=== PATIENT | female | born 1960 | race Caucasian/White ===

== ENCOUNTER 2016-08-09 00:56 | Emergency (ER) | payer MEDICARE, OTHER ==
[~2016-08-09] VITALS: Ht 175.3 cm; Wt 60.0 kg
[2016-08-09] MEDS ORDERED: SODIUM CHLOR 0.9% 1000 ML INJ 1,000 ML IV ONE ×2 (01:45)
[2016-08-09 01:58] VITALS: BP 85/54; PULSE 98; RESP 16; TEMP 97.9; O2SAT 95
[2016-08-09 02:25] VITALS: O2SAT 99
[2016-08-09 02:27] LABS: BASOPHIL # 0.1 TH/MM3 (0-0.2); EOSINOPHIL # 0.8 TH/MM3 (0-0.4); LYMPH % 45.2 % (9.0-44.0); LYMPHOCYTE # 5.3 TH/MM3 (1.0-4.8); MEAN CELL VOLUME 98.8 FL (80.0-100.0); MEAN CORPUSCULAR HEMOGLOBIN 34.8 PG (27.0-34.0); MEAN CORPUSCULAR HGB CONC 35.2 % (32.0-36.0); MONO % 4.8 % (0.0-8.0); PLATELET COUNT 244 TH/MM3 (150-450); RED BLOOD COUNT 3.64 MIL/MM3 (4.00-5.30); RED CELL DISTRIBUTION WIDTH 13.1 % (11.6-17.2); WHITE BLOOD COUNT 11.8 TH/MM3 (4.0-11.0)
[2016-08-09 02:31] LABS: HEMO FLAGS AUTO DIFF
[2016-08-09 02:46] LABS: AMPHETAMINE, URINE NEG (NEG); BARBITURATES, URINE NEG (NEG); COCAINE, URINE NEG (NEG)
[2016-08-09 02:59] LABS: ALKALINE PHOSPHATASE 67 U/L (45-117); ALT (GPT) 55 U/L (10-53); TOTAL BILIRUBIN ADULT 0.2 MG/DL (0.2-1.0)
[2016-08-09 03:23] LABS: ANION GAP 6 MEQ/L (5-15); AST (GOT) 62 U/L (15-37); BLOOD UREA NITROGEN 13 MG/DL (7-18); CHLORIDE 107 MEQ/L (98-107); GLOMERULAR FILTRATION RATE 91 ML/MIN (>89); SODIUM (NA) 139 MEQ/L (136-145)
[2016-08-09 03:24] LABS: POTASSIUM 4.8 MEQ/L (3.5-5.1)
[2016-08-09 03:37] LABS: BASOPHILS 1 % (0-2); EOSINOPHILS 5 % (0-4); PLATELET ESTIMATE SMEAR NORMAL (NORMAL); PLATELET MORPHOLOGY NORMAL (NORMAL); POLYS (SEG NEUTROPHILS) 42 % (16-70); SCAN/DIFF FINAL DIFF MANUAL; WBC DIFF SAMPLE 100
[2016-08-09 04:09] VITALS: BP 101/71; PULSE 78; RESP 18; O2SAT 99
--- NOTE | 2016-08-09 05:21 | PD ---
HPI Chief Complaint: Alcohol/Drug Intoxication Time Seen by Provider: 05:16 Travel History International Travel<30 days: No Contact w/Intl Traveler<30days: No Traveled to known affect area: No History of Present Illness HPI 56-year-old white female presents to emergency department under a [place] act. The patient was found heavily intoxicated and unable to care for herself. The patient here is unable to give any meaningful history due to her alcohol intoxication. We have tried to contact her daughter with a number we have received is not working. There is no evidence of trauma. [facility] Past Medical History Narrative Medical Anxiety, depression, possible heart disease Medical History: Unable to Obtain Tetanus Vaccination: < 5 Years ?: Unknown Past Surgical History Surgical History: No Previous Surgery Social History Alcohol Use: Yes Tobacco Use: Yes Substance Use: No Allergies-Medications (Allergen,Severity, Reaction): Coded Allergies: UNOBTAINABLE (Unverified , 08/09/16) Review of Systems ROS Limitations: Intoxication Physical Exam Narrative GENERAL: Well-nourished, well-developed patient. Patient smells of EtOH appears heavily intoxicated. She is unsteady on her feet and smells of EtOH SKIN: Warm and dry. HEAD: Normocephalic and atraumatic. EYES: No scleral icterus. No injection or drainage. ENT: No nasal drainage noted. Mucous membranes pink. Airway patent. NECK: Supple, trachea midline. Moves head freely without obvious discomfort. CARDIOVASCULAR: Regular rate and rhythm without murmurs, gallops, or rubs. RESPIRATORY: Breath sounds equal bilaterally. No accessory muscle use. GASTROINTESTINAL: Abdomen soft, non-tender, nondistended. EXTREMITIES: No cyanosis or edema. BACK: Nontender without obvious deformity. No CVA tenderness. NEURO: Patient is alert and oriented. no sensorimotor deficits. Nonfocal. Slurred speech. PSYCH: No delusions. No auditory or visual hallucinations. Data Data Last Documented VS Vital Signs Date Time Temp Pulse Resp B/P Pulse Ox O2 Delivery O2 Flow Rate FiO2 08/09/16 02:25 99 Room Air 08/09/16 01:58 97.9 98 16 85/54 Orders Complete Blood Count With Diff (08/09/16 01:38) Comprehensive Metabolic Panel (08/09/16 01:38) Ed Urine Pregnancytest Poc (08/09/16 01:38) Oximetry (08/09/16 01:38) Iv Access Insert/Monitor (08/09/16 01:38) Ecg Monitoring (08/09/16 01:38) Drug Screen, Random Urine (08/09/16 01:38) Alcohol (Ethanol) (08/09/16 01:38) Sodium Chlor 0.9% 1000 Ml Inj (Ns 1000 M (08/09/16 01:45) Sodium Chlor 0.9% 1000 Ml Inj (Ns 1000 M (08/09/16 01:45) Labs Laboratory Tests Test 08/09/16 08/09/16 01:45 02:15 White Blood Count 11.8 TH/MM3 Red Blood Count 3.64 MIL/MM3 Hemoglobin 12.7 GM/DL Hematocrit 36.0 % Mean Corpuscular Volume 98.8 FL Mean Corpuscular Hemoglobin 34.8 PG Mean Corpuscular Hemoglobin 35.2 % Concent Red Cell Distribution Width 13.1 % Platelet Count 244 TH/MM3 Mean Platelet Volume 7.8 FL Neutrophils (%) (Auto) 42.0 % Lymphocytes (%) (Auto) 45.2 % Monocytes (%) (Auto) 4.8 % Eosinophils (%) (Auto) 7.0 % Basophils (%) (Auto) 1.0 % Neutrophils # (Auto) 5.0 TH/MM3 Lymphocytes # (Auto) 5.3 TH/MM3 Monocytes # (Auto) 0.6 TH/MM3 Eosinophils # (Auto) 0.8 TH/MM3 Basophils # (Auto) 0.1 TH/MM3 CBC Comment AUTO DIFF Differential Total Cells 100 Counted Neutrophils % (Manual) 42 % Lymphocytes % 44 % Monocytes % 8 % Eosinophils % 5 % Basophils % 1 % Neutrophils # (Manual) 5.0 TH/MM3 Differential Comment FINAL DIFF MANUAL Platelet Estimate NORMAL Platelet Morphology Comment NORMAL Red Cell Morphology Comment NORMAL Sodium Level 139 MEQ/L Potassium Level 4.8 MEQ/L Chloride Level 107 MEQ/L Carbon Dioxide Level 26.0 MEQ/L Anion Gap 6 MEQ/L Blood Urea Nitrogen 13 MG/DL Creatinine 0.67 MG/DL Estimat Glomerular Filtration 91 ML/MIN Rate Random Glucose 86 MG/DL Calcium Level 8.4 MG/DL Total Bilirubin 0.2 MG/DL Aspartate Amino Transf 62 U/L (AST/SGOT) Alanine Aminotransferase 55 U/L (ALT/SGPT) Alkaline Phosphatase 67 U/L Total Protein 7.8 GM/DL Albumin 3.4 GM/DL Ethyl Alcohol Level 276 MG/DL Urine Opiates Screen NEG Urine Barbiturates Screen NEG Urine Amphetamines Screen NEG Urine Benzodiazepines Screen NEG Urine Cocaine Screen NEG Urine Cannabinoids Screen NEG MDM Medical Decision Making Medical Screen Exam Complete: Yes Emergency Medical Condition: Yes Medical Record Reviewed: Yes Interpretation(s) Laboratory Tests Test 08/09/16 08/09/16 01:45 02:15 White Blood Count 11.8 TH/MM3 Red Blood Count 3.64 MIL/MM3 Hemoglobin 12.7 GM/DL Hematocrit 36.0 % Mean Corpuscular Volume 98.8 FL Mean Corpuscular Hemoglobin 34.8 PG Mean Corpuscular Hemoglobin 35.2 % Concent Red Cell Distribution Width 13.1 % Platelet Count 244 TH/MM3 Mean Platelet Volume 7.8 FL Neutrophils (%) (Auto) 42.0 % Lymphocytes (%) (Auto) 45.2 % Monocytes (%) (Auto) 4.8 % Eosinophils (%) (Auto) 7.0 % Basophils (%) (Auto) 1.0 % Neutrophils # (Auto) 5.0 TH/MM3 Lymphocytes # (Auto) 5.3 TH/MM3 Monocytes # (Auto) 0.6 TH/MM3 Eosinophils # (Auto) 0.8 TH/MM3 Basophils # (Auto) 0.1 TH/MM3 CBC Comment AUTO DIFF Differential Total Cells 100 Counted Neutrophils % (Manual) 42 % Lymphocytes % 44 % Monocytes % 8 % Eosinophils % 5 % Basophils % 1 % Neutrophils # (Manual) 5.0 TH/MM3 Differential Comment FINAL DIFF MANUAL Platelet Estimate NORMAL Platelet Morphology Comment NORMAL Red Cell Morphology Comment NORMAL Sodium Level 139 MEQ/L Potassium Level 4.8 MEQ/L Chloride Level 107 MEQ/L Carbon Dioxide Level 26.0 MEQ/L Anion Gap 6 MEQ/L Blood Urea Nitrogen 13 MG/DL Creatinine 0.67 MG/DL Estimat Glomerular Filtration 91 ML/MIN Rate Random Glucose 86 MG/DL Calcium Level 8.4 MG/DL Total Bilirubin 0.2 MG/DL Aspartate Amino Transf 62 U/L (AST/SGOT) Alanine Aminotransferase 55 U/L (ALT/SGPT) Alkaline Phosphatase 67 U/L Total Protein 7.8 GM/DL Albumin 3.4 GM/DL Ethyl Alcohol Level 276 MG/DL Urine Opiates Screen NEG Urine Barbiturates Screen NEG Urine Amphetamines Screen NEG Urine Benzodiazepines Screen NEG Urine Cocaine Screen NEG Urine Cannabinoids Screen NEG Differential Diagnosis Differential diagnoses: Alcohol intoxication, substance abuse, electrolyte abnormality, malingering Narrative Course The patient will be allowed to sleep it off here in the examination room. Once the patient exhibits sobriety she may be discharged in her [place] act will be lifted. She also can be discharged earlier if she can find a sober individual to pick her up. This is alcohol intoxication, [place] act Diagnosis Primary Impression: Alcohol intoxication Qualified Code: F10.120 - Alcohol intoxication, uncomplicated Additional Impression: [place] act Patient Instructions: General Instructions Additional Instructions: Rest. Increase fluids. Avoid alcohol. Avoid illegal substances. Follow-up with [facility] for detox. Do not operate a car or any heavy machinery under the influence of alcohol or drugs. Follow-up with a medical doctor this week. Return to the ER for emergencies Med/Other Pt SpecificInfo: No Meds Exist/No RX given Disposition: DISCHARGE HOME Condition: Stable Ivan Herring Aug 09, 2016 05:21
[2016-08-09 10:11] VITALS: BP 99/66; PULSE 89; RESP 20; O2SAT 96
== END 2016-08-09 11:00 | disposition home or self-care (01) ==
LOC: NEPA 00:56
DX: F10.120 Alcohol abuse with intoxication, uncomplicated (principal); Y90.8 Blood alcohol level of 240 mg/100 ml or more
CPT/HCPCS: 80053; 80307; 80320; 84703; 85007; 85027; 96374; 99284; J7030